=== PATIENT | female | born 1940 | race Two or more races ===

== ENCOUNTER 2021-04-25 14:43 | Emergency (ER) | payer MEDICARE, MEDICAID ==
[~2021-04-25] VITALS: Ht 167.6 cm; Wt 83.6 kg
[2021-04-25 16:45] LABS: COLOR,URINE YELLOW
[2021-04-25 16:46] LABS: BACTERIA,URINE FEW /HPF (0-FEW); BILIRUBIN,URINE NEG (NEG); CLARITY,URINE CLEAR; GLUCOSE,URINE NEG (NEG); NITRITE,URINE NEG (NEG); RBC,URINE 0 /HPF (0-2); SQUAMOUS EPITHELIAL CELL,UR FEW /LPF; UROBILINOGEN,URINE 0.2 mg/dL (0.2 mg/dL); WBC,URINE 0 /HPF (0-4)
--- NOTE | 2021-04-25 18:07 | PHYS DOC ---
Past History Past Surgical History: Appendectomy Alcohol Use: None General Adult EDM: Chief Complaint: URINARY FREQUENCY HPI: HPI: " Patient is a 81 year old female who presents with above hx and dysuria. Pt. report increased frequency, Pt. does have a history of Renal Insuf. and has followed with Nephrology in past. Pt denies any rash or pelvic discharge. Pt. has had one COVID vaccination. Has not had Flu vaccination this season. No recent travel. No specific ill contacts. No complaints of fever or chills. No complaints of constipation. Pt,. follows with Dr. Dooley as primary. Son is at bed side- this is who she wished to use a powerhouse engineer. Pt. does have some gait issues. Bladder scan did show 350 cc of urine, but pt. was then able to produce 350 cc of urine. Review of Systems: Review of Systems: Constitutional: Denies fever or chills Eyes: Denies change in visual acuity HENT: Denies nasal congestion or sore throat Respiratory: Denies cough or shortness of breath Cardiovascular: Denies chest pain or edema GI: Denies abdominal pain, nausea, vomiting, bloody stools or diarrhea : Complaingts of frequency and dysuria Musculoskeletal: Denies back pain or joint pain Integument: Denies rash Neurologic: Denies headache, focal weakness or sensory changes Endocrine: Denies polyuria or polydipsia Lymphatic: Denies swollen glands Psychiatric: Denies depression or anxiety Family History: Family History: Non-contributory Current Medications: Current Meds: See Nursing for home meds Allergies: Allergies: Allergies Coded Allergies Type Severity Reaction Last Updated Verified Penicillins Allergy Unknown 04/25/21 Yes aspirin Allergy Unknown 04/25/21 Yes fish oil Allergy Unknown 04/25/21 Yes morphine Allergy Unknown 04/25/21 Yes omega-3 acid ethyl esters Allergy Unknown 04/25/21 Yes Physical Exam: PE: Constitutional: no acute distress, non-toxic appearance. [] HENT: Normocephalic, atraumatic, bilateral external ears normal, oropharynx m oist, no oral exudates, nose normal. [] Eyes: PERRLA, EOMI, conjunctiva normal, no discharge. [] Neck: Normal range of motion, no tenderness, supple, no stridor. [] Cardiovascular:Heart rate regular rhythm, no murmur [] Lungs & Thorax: Bilateral breath sounds clear to auscultation [] Abdomen: Bowel sounds normal, soft, no tenderness, no masses, no pulsatile masses. [] Skin: Warm, dry, no erythema, no rash. [] Back: No tenderness, no CVA tenderness. [] Extremities: No tenderness, no cyanosis, no clubbing, ROM intact, no edema. Arthritic changes. Neurologic: Alert and oriented X 3, limited lower limb motor function, decreased pedal sensory function, no focal deficits noted. [] Psychologic: Affect anxious, judgement normal, mood normal. [] Current Patient Data: Labs: Laboratory Tests Test 04/25/21 15:52 Urine Collection Type Unknown Urine Color Yellow Urine Clarity Clear Urine pH 7.0 Urine Specific [place] 1.020 Urine Protein 100 mg/dl (NEG-TRACE) Urine Glucose (UA) Neg mg/dL (NEG) Urine Ketones (Stick) Neg mg/dL (NEG) Urine Blood Trace (NEG) Urine Nitrite Neg (NEG) Urine Bilirubin Neg (NEG) Urine Urobilinogen Dipstick 0.2 mg/dL (0.2 mg/dL) Urine Leukocyte Esterase Neg (NEG) Urine RBC 0 /HPF (0-2) Urine WBC 0 /HPF (0-4) Urine Squamous Epithelial Cells Few /LPF Urine Bacteria Few /HPF (0-FEW) Vital Signs: Vital Signs Date Time Temp Pulse Resp B/P (MAP) Pulse Ox O2 Delivery O2 Flow Rate FiO2 04/25/21 17:57 66 18 231/106 (147) 96 Room Air 04/25/21 15:48 98.5 EKG: EKG: [] Radiology/Procedures: Radiology/Procedures: [] Heart Score: C/O Chest Pain: N/A Risk Factors: Risk Factors: DM, Current or recent (<one month) smoker, HTN, HLP, family history of CAD, obesity. Risk Scores: Score 0 - 3: 2.5% MACE over next 6 weeks - Discharge Home Score 4 - 6: 20.3% MACE over next 6 weeks - Admit for Clinical Observation Score 7 - 10: 72.7% MACE over next 6 weeks - Early Invasive Strategies Course & Med Decision Making: Course & Med Decision Making Pertinent Labs and Imaging studies reviewed. (See chart for details) Bladder scan showed 350 cc of urine and post was able to urinate 350 cc of urine. Recommend patient follow-up with nephrology. Develop a plan with her primary care over the nephrology specialist he works with. There are olive grader on-call and clinics at [facility]. I also follow-up with [facility] who has extensive nephrology services. Follow-up pending urine culture. Return if any concerns. Trial of Pyridium given patient informed that her urine will turn red and that is not bleeding. Patient return if any concerns. Impression: 1. History of urinary frequency and dysuria 2. History of renal insufficiency 3. Gait disorder. []Dictation loss# [id number] Finesse Disclaimer: Finesse Disclaimer: This electronic medical record was generated, in whole or in part, using a voice recognition dictation system. Departure Departure: Referrals: MONICA DOOLEY MD (PCP) Finesse Disclaimer This chart was dictated in whole or in part using Voice Recognition software in a busy, high-work load, and often noisy Emergency Department environment. It may contain unintended and wholly unrecognized errors or omissions. ROSA COPPOLA MD Apr 25, 2021 18:07
[2021-04-25] MEDS ORDERED: PHENAZOPYRIDINE 100 MG TABLET. PO ONE (18:15)
[2021-04-25 18:56] VITALS: BP 174/115
== END 2021-04-25 18:58 | disposition home or self-care (01) ==
LOC: ER 14:43
DX: R26.9 Unspecified abnormalities of gait and mobility (principal); R30.0 Dysuria; R35.0 Frequency of micturition; N28.9 Disorder of kidney and ureter, unspecified; Z90.89 Acquired absence of other organs; Z88.0 Allergy status to penicillin; Z88.6 Allergy status to analgesic agent; Z88.5 Allergy status to narcotic agent; Z88.8 Allergy status to other drugs, medicaments and biological substances
CPT/HCPCS: 81001; 99284

== ENCOUNTER → 2021-06-04 | Outpatient (CLI) | payer MEDICARE, MEDICAID ==
--- NOTE | 2021-06-04 18:24 | RAD ---
Exam Date: 06/04/2021 5:34 PM XR SHOULDER 2+ VIEWS BILAT Indication: Reason: BILATERAL SHOULDER PAIN X 1 WEEK, WORSE IN RIGHT SHOULDER / Spl. Instructions: / History: . FINDINGS/ IMPRESSION: No acute fracture or dislocation. Moderate degenerative changes are noted. Alignment is maintained. The soft tissues are within normal limits. Healed left rib fracture noted. Electronically signed by: Rock Yost MD (06/04/2021 6:21 PM) CRIS
== END ==
LOC: PMG 17:15
PROVIDERS: ATTEND Physician Assistant
DX: M19.012 Primary osteoarthritis, left shoulder (principal); M19.011 Primary osteoarthritis, right shoulder
CPT/HCPCS: 73030-50

== ENCOUNTER 2021-06-14 15:13 | Emergency (ER) | payer MEDICARE, MEDICAID ==
[~2021-06-14] VITALS: Ht 167.6 cm; Wt 85.2 kg
[2021-06-14] MEDS ORDERED: hydrALAZINE 10 MG TABLET PO ONE (15:45)
--- NOTE | 2021-06-14 15:45 | PHYS DOC ---
Past History Past Medical History: Diabetes, High Cholesterol, Hypertension Past Surgical History: Appendectomy Alcohol Use: None Adult General HPI HPI Patient is a 81-year-old female presenting with son via POV for hypertension. Reports she has been at baseline health recently and intended an outpatient nephrology appointment for her CKD 3 earlier today where her blood pressure was found to be 218/100. She was asymptomatic but given high reading, it was advised she present to the ER for evaluation. On arrival, patient remains asymptomatic and admits she took all of her scheduled blood pressure medications today that included losartan and carvedilol without compliance issues and has been on this regiment for a while. Admits she does not have a blood pressure cuff at home and has not been checking her blood pressures consistently recently. No other major changes in health, ingestions, falls, lightheadedness or dizziness, chest pain, ripping or tearing sensation in torso, respiratory symptoms, abdominal pain, changes in urine and/or bowel output, no motor or sensory or neuro function changes past baseline. Review of Systems Review of Systems Fourteen body systems of review of systems have been reviewed. See HPI for pertinent positives and negative responses, other ricardo all other systems are negative, non-pertinent or non-contributory Allergies Allergies Allergies Coded Allergies Type Severity Reaction Last Updated Verified Penicillins Allergy Unknown 04/25/21 Yes aspirin Allergy Unknown 04/25/21 Yes fish oil Allergy Unknown 04/25/21 Yes morphine Allergy Unknown 04/25/21 Yes omega-3 acid ethyl esters Allergy Unknown 04/25/21 Yes Physical Exam Physical Exam Constitutional: Well developed, well nourished, no acute distress, non-toxic appearance. HENT: Normocephalic, atraumatic, bilateral external ears normal, oropharynx moist, no oral exudates, nose normal. Eyes: PERRLA, EOMI, conjunctiva normal, no discharge. Neck: Normal range of motion, no tenderness, supple, no stridor. Cardiovascular: Heart rate regular, sinus rhythm, no murmurs rubs or gallops Lungs & Thorax: Bilateral breath sounds clear to auscultation Abdomen: Bowel sounds normal, soft, no tenderness, no masses, no pulsatile masses. Nonsurgical abdomen, no peritoneal signs Skin: Warm, dry, no erythema, no rash. Back: No tenderness, no CVA tenderness. Extremities: No tenderness, no cyanosis, no clubbing, ROM intact except right upper extremity in sling immobilizer, no edema. Neurologic: Alert and oriented X 3, grossly normal motor & sensory function, no focal deficits noted. Psychologic: Affect normal, judgement normal, mood normal. Current Patient Data Vital Signs Vital Signs Date Time Temp Pulse Resp B/P (MAP) Pulse Ox O2 Delivery O2 Flow Rate FiO2 06/14/21 15:47 66 222/98 06/14/21 15:53 98.2 18 99 Room Air Vital Signs Date Time Temp Pulse Resp B/P (MAP) Pulse Ox O2 Delivery O2 Flow Rate FiO2 06/14/21 15:53 98.2 67 18 222/98 (139) 99 Room Air EKG EKG EKG ordered and interpreted by myself at 1550 hrs. is sinus rhythm at 63 bpm, unremarkable intervals, left axis deviation, T wave inversion noted in lead I and aVL, no STEMI Radiology/Procedures Radiology/Procedures [] Heart Score C/O Chest Pain: No Risk Factors: Risk Factors: DM, Current or recent (<one month) smoker, HTN, HLP, family history of CAD, obesity. Risk Scores: Risk Factors: DM, Current or recent (<one month) smoker, HTN, HLP, family history of CAD, obesity. Course & Med Decision Making Course & Med Decision Making Airway patent, breathing unlabored, vitals obtained concerning for hypertension only in an asymptomatic patient HPI physical exam and EKG performed that were nonconcerning for any acutely emergent and/or surgical issues Patient presenting for asymptomatic hypertension. Disclose limited indication for further diagnostic work-up given that patient is asymptomatic, patient and son agreed. 10 mg p.o. hydralazine administered Patient also complaining of chronic right shoulder pain. This is been worked up in outpatient setting with unremarkable radiographs and has received prior injections with significant pain improvement. She is requesting pain control Patient also here complaining of chronic sleep issues. Patient was previously prescribed amitriptyline for sleep issues but was discontinued a couple years ago due to fear this was causing her elevated blood pressure, states she did not sleep well last night Ultimately, joint decision among all to administer [place] 5 for pain. Decision to defer other potentially abusable and/or high risk medications for sleep while in ER setting for chronic issue. Sleep issues likely contributing to high blood pressure reading today Patient to be discharged home with instructions to keep dedicated blood pressure log and contact primary care physician tomorrow to review as she might require increased dose of current blood pressure medications. Strict return precautions discussed with good understanding by patient and son Finesse Disclaimer Finesse Disclaimer This electronic medical record was generated, in whole or in part, using a voice recognition dictation system. Departure Departure: Impression: Primary Impression: Asymptomatic hypertension Additional Impressions: Shoulder pain History of difficulty sleeping Disposition: HOME / SELF CARE / HOMELESS Condition: STABLE Referrals: MONICA YODER MD (PCP) Patient Instructions: Form - Blood Pressure Record Sheet Additional Instructions: You were seen for asymptomatic hypertension. Your physical exam was reassuring. As disclosed, there is limited indication for further diagnostic work-up given your asymptomatic status. Many issues can cause elevated blood pressure readings such as pain from your right shoulder and poor sleep. It is unclear if you require any medication changes from your baseline hypertension regiment giv en recent elevated blood pressure readings as you do not keep a dedicated blood pressure log at home and overall blood pressure range is unclear. As such, you need to follow up with your primary care physician for further evaluation and treatment of your blood pressure. You should return to the ED if you develop chest pain, shortness of breath, severe headache, or any other new or concerning symptoms. Check your blood pressures over the next few days after you take your medications but before any caffeine and keep track of these. Call your primary care physician on the next business day and follow up in the clinic with these results as they may need to adjust your medications. Again, if any new or worsening symptoms, please return to the ED or seek evaluation by a healthcare professional. Problem Qualifiers ANGUS LADD DO Jun 14, 2021 15:45
--- NOTE | 2021-06-14 16:09 | EKG ---
[address] [address] Test Date: 2021-06-14 Test Time: 15:50:09 Pat Name: MASON DE LA CRUZ Department: Room: Gender: F Gold Plater: NANCY : 1940 Requested By: ANGUS LADD Order Number: [id number] Reading MD: Daren Simons MD Measurements Intervals [place] Rate: 63 P: 39 W[place]: 174 QRS: -24 QRSD: 94 T: 118 QT: 400 QTc: 412 Interpretive Statements SINUS RHYTHM Electronically Signed On 06-18-2021 11:12:50 GRANULATING BLENDER by Daren Simons MD
[2021-06-14 16:44] VITALS: BP 210/88
[2021-06-14] MEDS ORDERED: HYDROcodone/APAP 5/325MG 1 TAB TABLET PO ONE (17:00)
== END 2021-06-14 17:13 | disposition home or self-care (01) ==
LOC: ER 15:13
DX: I12.9 Hypertensive chronic kidney disease with stage 1 through stage 4 chronic kidney disease, or unspecified chronic kidney disease (principal); E11.22 Type 2 diabetes mellitus with diabetic chronic kidney disease; N18.30 Chronic kidney disease, stage 3 unspecified; M25.511 Pain in right shoulder; G89.29 Other chronic pain; E78.00 Pure hypercholesterolemia, unspecified; Z88.0 Allergy status to penicillin; Z88.6 Allergy status to analgesic agent; Z88.5 Allergy status to narcotic agent; Z88.8 Allergy status to other drugs, medicaments and biological substances
CPT/HCPCS: 93005; 99283